=== PATIENT | female | born 2000 | race Two or more races ===

== ENCOUNTER 2023-04-25 15:43 | Emergency (ER) | payer MEDICAID ==
[~2023-04-25] VITALS: Ht 154.9 cm; Wt 59.0 kg
[2023-04-25] MEDS: LIDOCAINE 1%-EPI 1:100,000 20 ML VIAL TP ONE (17:02)
[2023-04-25 17:18] VITALS: BP 131/81
== END 2023-04-25 17:18 | disposition home or self-care (01) ==
LOC: ER 15:43
DX: L02.414 Cutaneous abscess of left upper limb (principal)
CPT/HCPCS: A6407